=== PATIENT | male | born 2000 | race Caucasian/White ===

== ENCOUNTER 2021-05-13 19:45 | Emergency (ER) | payer SELFPAY ==
[~2021-05-13] VITALS: Ht 177.8 cm; Wt 80.0 kg
[2021-05-13 20:40] VITALS: BP 122/75; TEMP 98.7
[2021-05-13] MEDS ORDERED: PREDNISONE20 MG PO (22:49)
[2021-05-13 23:10] VITALS: PULSE 86
== END 2021-05-13 23:10 | disposition home or self-care (01) ==
LOC: COL.ER 19:45
DX: D69.0 Allergic purpura (principal)